=== PATIENT | female | born 2005 | race Caucasian/White ===

== ENCOUNTER 2025-05-19 00:52 | Emergency (ER) | payer OTHER ==
[~2025-05-19] VITALS: Ht 162.6 cm; Wt 79.8 kg
[2025-05-19 00:58] VITALS: O2SAT 100
[2025-05-19] MEDS: KETOROLAC TROMETHAMINE 30 MG INJ IM ONE (01:33)
[2025-05-19] MEDS ORDERED: NAPR-1009 PO (01:49)
== END 2025-05-19 01:58 | disposition home or self-care (01) ==
LOC: ER 01:07
DX: S83.8X2A Sprain of other specified parts of left knee, initial encounter (principal); Z60.2 Problems related to living alone; X50.1XXA Overexertion from prolonged static or awkward postures, initial encounter; Y93.51 Activity, roller skating (inline) and skateboarding; Y92.89 Other specified places as the place of occurrence of the external cause; Y99.8 Other external cause status
CPT/HCPCS: 99283; 73560; 96372; J1885; A4606; A4663